=== PATIENT | female | born 1945 | race Two or more races ===

== ENCOUNTER 2019-08-31 10:45 | Inpatient (IN) | payer OTHER ==
[~2019-08-31] VITALS: Ht 160 cm; Wt 74.8 kg
[2019-08-31] MEDS ORDERED: LANTUS SOL100 UNIT/1 (12:25)
[2019-08-31] MEDS ORDERED: ACTIGAL PO (12:26)
[2019-08-31] MEDS ORDERED: HUMALOG100 UNIT/1 SUBCUTANEO (12:26)
[2019-08-31] MEDS ORDERED: CRESTOR40 MG PO (12:27)
[2019-08-31] MEDS ORDERED: DEXILANT60 MG PO (12:27)
[2019-08-31] MEDS ORDERED: AVAPRO150 MG PO (12:28)
[2019-08-31] MEDS ORDERED: ZETIA10 MG PO (12:28)
[2019-09-06] MEDS ORDERED: CRESTOR10 MG (08:03)
[2019-09-06] MEDS ORDERED: ACTIGALL300 MG (08:03)
== END 2019-09-09 19:12 | disposition home or self-care (01) | DRG 330 ==
LOC: O/R 09-06 06:00 → SURG 09-06 06:00
PROVIDERS: ADMIT Colon & Rectal Surgery
PROC: 07BB4ZX Excision of Mesenteric Lymphatic, Percutaneous Endoscopic Approach, Diagnostic (ICD-10-PCS; 2019-09-06)
PROC: 0DBU4ZZ Excision of Omentum, Percutaneous Endoscopic Approach (ICD-10-PCS; 2019-09-06)
PROC: 4A12X4Z Monitoring of Cardiac Electrical Activity, External Approach (ICD-10-PCS; 2019-09-06)
PROC: 4A033R1 Measurement of Arterial Saturation, Peripheral, Percutaneous Approach (ICD-10-PCS; 2019-09-06)
PROC: 0DTF4ZZ Resection of Right Large Intestine, Percutaneous Endoscopic Approach (ICD-10-PCS; principal; 2019-09-06 21:00)
DX: D12.2 Benign neoplasm of ascending colon (principal); D62 Acute posthemorrhagic anemia; R59.0 Localized enlarged lymph nodes; K66.0 Peritoneal adhesions (postprocedural) (postinfection); I11.9 Hypertensive heart disease without heart failure; G47.33 Obstructive sleep apnea (adult) (pediatric); E11.9 Type 2 diabetes mellitus without complications; Z79.4 Long term (current) use of insulin